=== PATIENT | male | born 1975 | race Caucasian/White ===

== ENCOUNTER 2019-12-16 09:19 | Observation (INO) ==
[2019-12-16 10:51] LABS: Basophils % 0.5 %; Eosinophils # 0.1 K/mcL (0.0-0.6); Eosinophils % 1.5 %; Hematocrit 48.2 % (37.5-50.1); Hemoglobin 16.4 g/dL (12.9-16.9); Immature Granulocytes % 0.3 % (0-4); Lymphocytes # 1.7 K/mcL (0.6-4.6); Lymphocytes % 28.1 %; Mean Corpuscular Hemoglobin 30.4 pg (28.0-33.3); Mean Corpuscular Volume 89.4 fL (83.0-100.0); Mean Platelet Volume 9.8 fL (9.4-12.4); Monocytes # 0.7 K/mcL (0.0-1.3); Monocytes % 11.1 %; Neutrophils # 3.5 K/mcL (1.6-8.9); Platelet Count 247 K/mcL (140-400); Red Blood Count 5.39 M/mcL (4.19-5.50); Red Cell Distribution Width 13.4 % (11.5-14.5); Segmented Neutrophils % 58.5 %; White Blood Count 5.9 K/mcL (4.3-11.1)
[2019-12-16 10:59] LABS: INR 1.1; Prothrombin Time 12.2 Seconds (9.4-12.1)
[2019-12-16 11:11] LABS: BUN/Creatinine Ratio 14 (6-26); Blood Urea Nitrogen 12 mg/dL (6-20); Calcium 9.2 mg/dL (8.6-10.3); Carbon Dioxide 23 mEq/L (23-29); Chloride 107 mEq/L (98-107); Glucose 110 mg/dL (70-105); Osmolality,Calculated 286 (280-300); Sodium 138 mEq/L (136-145); eGFR For African Americans > 60 (> 60); eGFR For Non-African Americans > 60 (> 60)
[2019-12-16 11:12] LABS: Troponin I < 0.03 ng/mL (< 0.04)
[2019-12-16 11:46] LABS: C-Reactive Protein 66 mg/L (Less than 10)
[2019-12-16] MEDS ORDERED: Naloxone 0.4 MG/ML INJ IVP PRN (15:52)
[2019-12-16] MEDS ORDERED: Perflutren Lipid Microsphere 1.3 ML in 0.9 % Sodium Chloride 8.7 ML IVP PRN (15:54)
[2019-12-16] MEDS ORDERED: Acetaminophen 325 MG TABLET PO PRN (17:57)
[2019-12-16] MEDS: *HR* Heparin 5,000 UNIT/ML VIAL SQ SCH (18:37)
[2019-12-17 00:31] LABS: Hematocrit 47.2 % (37.5-50.1); Hemoglobin 15.6 g/dL (12.9-16.9); Mean Corpuscular HGB Conc 33.1 g/dL (31.6-35.5); Mean Corpuscular Hemoglobin 29.2 pg (28.0-33.3); Mean Corpuscular Volume 88.4 fL (83.0-100.0); Mean Platelet Volume 9.5 fL (9.4-12.4); Platelet Count 281 K/mcL (140-400); Red Blood Count 5.34 M/mcL (4.19-5.50); Red Cell Distribution Width 13.3 % (11.5-14.5); White Blood Count 7.2 K/mcL (4.3-11.1)
[2019-12-17 00:50] LABS: BUN/Creatinine Ratio 17 (6-26); Blood Urea Nitrogen 15 mg/dL (6-20); Calcium 8.6 mg/dL (8.6-10.3); Carbon Dioxide 24 mEq/L (23-29); Chloride 107 mEq/L (98-107); Cholesterol 215 mg/dL (< 200); Glucose 124 mg/dL (70-105); HDL Cholesterol 36 mg/dL (40-59); LDL Cholesterol,Calculated 131 mg/dL (< 100); Osmolality,Calculated 288 (280-300); Potassium 3.7 mEq/L (3.5-5.1); Sodium 138 mEq/L (136-145); Triglycerides 238 mg/dL (< 150); Troponin I < 0.03 ng/mL (< 0.04); eGFR For African Americans > 60 (> 60); eGFR For Non-African Americans > 60 (> 60)
[2019-12-17] MEDS: *HR* Heparin 5,000 UNIT/ML VIAL SQ SCH (06:03)
[2019-12-17] MEDS ORDERED: Isovue-370 500 ML BOTTLE IVP ONE (12:00)
[2019-12-17 16:45] VITALS: BP 139/91
== END 2019-12-17 17:31 | disposition home or self-care (01) ==
LOC: EMEROOARM 09:19 → CDU 09:19
PROVIDERS: ADMIT Internal Medicine; ATTEND Internal Medicine